=== PATIENT | female | born 1960 | race Caucasian/White ===

== ENCOUNTER 2017-04-15 19:48 | Inpatient (IN) | payer MEDICAID ==
[~2017-04-15] VITALS: Ht 152.4 cm; Wt 53.7 kg
[2017-04-16] MEDS ORDERED: SODIUM CHLORIDE 0.9% 1,000 ML IV ONE (00:14)
[2017-04-16] MEDS ORDERED: ONDANSETRON HCL 4MG/2ML VIAL IV STA (00:14)
[2017-04-16] MEDS ORDERED: MORPHINE SULFATE 4 MG/ML CPJ (NOT FOR IM USE) IV STA (00:14)
[2017-04-16 00:42] LABS: BASOPHILS % 0.3 % (0.0-2.0); EOSINOPHILS % 1.3 % (0.0-5.0); HEMATOCRIT. 34.9 % (36.0-48.0); HEMOGLOBIN. 11.5 g/dL (12.0-16.0); LYMPHOCYTES % 40.4 % (20.0-50.0); MEAN CORPUSCULAR HEMOGLOBIN 27.2 pg (28.0-32.0); MEAN CORPUSCULAR VOLUME 82.5 fL (81.0-99.0); MEAN PLATELET VOLUME 6.8 fl (7.4-10.4); PLATELET 385 x1000/uL (130-400); RED BLOOD CELL COUNT 4.23 mill/uL (4.2-5.4)
[2017-04-16 00:44] LABS: CHLORIDE 108 mEq/L (98-107)
[2017-04-16 00:46] LABS: PROTHROMBIN TIME 10.8 sec (9.4-11.6)
[2017-04-16 00:52] LABS: CARBON DIOXIDE 24 mEq/L (21-32)
[2017-04-16 08:56] VITALS: BP 124/50
[2017-04-16] MEDS ORDERED: ACETAMINOPHEN 325MG TABLET PO PRN (09:15)
[2017-04-16] MEDS ORDERED: MORPHINE SULFATE 4 MG/ML CPJ (NOT FOR IM USE) IV PRN (09:15)
[2017-04-16] MEDS ORDERED: DEXTROSE 50% WATER 50ML SYRINGE IV PRN (09:15)
[2017-04-16] MEDS ORDERED: CLONIDINE 0.1MG TABLET PO PRN (09:15)
[2017-04-16] MEDS ORDERED: ONDANSETRON HCL 4MG/2ML VIAL IV PRN (09:15)
[2017-04-16 09:20] VITALS: BP 124/50
[2017-04-16] MEDS ORDERED: LORAZEPAM 1MG TABLET PO PRN (10:00)
[2017-04-16] MEDS ORDERED: IPRATROPIUM/ALBUTEROL 0.5-3(2.5)MG/3ML NEB INH PRN (10:00)
[2017-04-16] MEDS: PIPERACILLIN/TAZ 3.375G PREMIX 50 ML IV SCH ×2 (11:47→19:44)
[2017-04-16] MEDS: BLOOD SUGAR DIAGNOSTIC STRIP TEST SCH ×3 (11:58→21:00)
[2017-04-16] MEDS: INSULIN LISPRO 100 UNITS/ML SUBCUT SCH ×3 (11:59→23:17)
[2017-04-16 12:00] VITALS: BP 120/42
[2017-04-16] MEDS ORDERED: VANCOMYCIN 1 G PREMIX 200 ML IV SCH (12:00)
[2017-04-16] MEDS ORDERED: VITA1CAP PO (13:40)
[2017-04-16] MEDS ORDERED: IRON PO (13:42)
[2017-04-16] MEDS ORDERED: INSU100I28 SQ (14:00)
[2017-04-16] MEDS ORDERED: BO1 TP (14:00)
[2017-04-16] MEDS ORDERED: ACET-2178 PO (14:00)
[2017-04-16] MEDS ORDERED: RIVA20TA PO (14:00)
[2017-04-16] MEDS ORDERED: BUSP30TA2 PO (14:00)
[2017-04-16] MEDS ORDERED: LEVO500T2 PO (14:00)
[2017-04-16] MEDS ORDERED: MEGE40TA27 PO (14:00)
[2017-04-16] MEDS ORDERED: SIMV20TA2 PO (14:00)
[2017-04-16] MEDS: LACTATED RINGERS 1,000 ML IV SCH (14:19)
[2017-04-16 16:00] VITALS: BP 129/78
[2017-04-16] MEDS: HYDROCODONE/APAP 7.5/325MG 1 TAB TABLET PO PRN ×2 (17:24→23:12)
[2017-04-16 18:35] LABS: CREATINE KINASE 54 IU/L (26-192); TROPONIN I < 0.02 ng/mL (0.00-0.04)
[2017-04-16 20:00] VITALS: BP 136/66
[2017-04-17] VITALS: BP 148/70
[2017-04-17] MEDS ORDERED: VANCOMYCIN 500 MG PREMIX 100 ML IV SCH
[2017-04-17] MEDS: LACTATED RINGERS 1,000 ML IV SCH ×3 (00:31→20:15)
[2017-04-17 01:51] LABS: CREATINE KINASE 54 IU/L (26-192); TROPONIN I < 0.02 ng/mL (0.00-0.04)
[2017-04-17] MEDS: PIPERACILLIN/TAZ 3.375G PREMIX 50 ML IV SCH ×3 (03:06→23:23)
[2017-04-17] MEDS: HYDROCODONE/APAP 7.5/325MG 1 TAB TABLET PO PRN ×3 (03:06→13:56)
[2017-04-17 04:00] VITALS: BP 116/67
[2017-04-17] MEDS: BLOOD SUGAR DIAGNOSTIC STRIP TEST SCH ×4 (07:02→21:00)
[2017-04-17 07:27] LABS: BASOPHILS % 0.3 % (0.0-2.0); EOSINOPHILS % 2.2 % (0.0-5.0); HEMATOCRIT. 31.6 % (36.0-48.0); HEMOGLOBIN. 10.4 g/dL (12.0-16.0); LYMPHOCYTES % 48.5 % (20.0-50.0); MONOCYTES % 6.9 % (2.0-8.0); NEUTROPHILS % 42.1 % (40.0-76.0); PLATELET 371 x1000/uL (130-400); RED BLOOD CELL COUNT 3.86 mill/uL (4.2-5.4); RED CELL DISTRIBUTION WIDTH 13.7 % (11.6-14.6)
[2017-04-17] MEDS: INSULIN LISPRO 100 UNITS/ML SUBCUT SCH ×4 (07:43→21:00)
[2017-04-17 08:00] VITALS: BP 144/73
[2017-04-17 08:05] LABS: CARBON DIOXIDE 27 mEq/L (21-32); CHLORIDE 106 mEq/L (98-107); HDL CHOLESTEROL 56 mg/dL (40-59); LDL CHOLESTEROL 72 mg/dL (5-100)
[2017-04-17] MEDS ORDERED: IOHEXOL-350 100 ML BOTTLE ONE (12:31)
[2017-04-17 13:40] VITALS: BP 136/65
[2017-04-17 16:00] VITALS: BP 123/68
[2017-04-17 20:00] VITALS: BP 145/75
[2017-04-17] MEDS: MORPHINE SULFATE 2 MG/ML CPJ (NOT FOR IM USE) IV PRN (22:53)
[2017-04-18] VITALS: BP 125/77
[2017-04-18] MEDS: MORPHINE SULFATE 2 MG/ML CPJ (NOT FOR IM USE) IV PRN ×4 (03:21→22:26)
[2017-04-18 04:00] VITALS: BP 110/55
[2017-04-18] MEDS: PIPERACILLIN/TAZ 3.375G PREMIX 50 ML IV SCH ×3 (05:09→20:09)
[2017-04-18] MEDS: LACTATED RINGERS 1,000 ML IV SCH ×2 (05:57→17:36)
[2017-04-18] MEDS: BLOOD SUGAR DIAGNOSTIC STRIP TEST SCH ×4 (07:25→20:15)
[2017-04-18] MEDS: INSULIN LISPRO 100 UNITS/ML SUBCUT SCH ×4 (07:37→20:16)
[2017-04-18 08:00] VITALS: BP 142/72
[2017-04-18 12:00] VITALS: BP 118/79
[2017-04-18 16:00] VITALS: BP 130/60
[2017-04-18] MEDS: HYDROCODONE/APAP 7.5/325MG 1 TAB TABLET PO PRN (17:35)
[2017-04-18 20:00] VITALS: BP 126/73
[2017-04-19] VITALS: BP 122/73
[2017-04-19] MEDS: LACTATED RINGERS 1,000 ML IV SCH ×2 (02:22→12:58)
[2017-04-19] MEDS: MORPHINE SULFATE 2 MG/ML CPJ (NOT FOR IM USE) IV PRN ×3 (02:23→17:02)
[2017-04-19 04:00] VITALS: BP 133/72
[2017-04-19] MEDS: PIPERACILLIN/TAZ 3.375G PREMIX 50 ML IV SCH ×3 (05:36→21:41)
[2017-04-19] MEDS: HYDROCODONE/APAP 7.5/325MG 1 TAB TABLET PO PRN ×2 (05:37→21:41)
[2017-04-19] MEDS: BLOOD SUGAR DIAGNOSTIC STRIP TEST SCH ×4 (06:08→21:45)
[2017-04-19] MEDS: INSULIN LISPRO 100 UNITS/ML SUBCUT SCH ×4 (07:34→22:21)
[2017-04-19 08:00] VITALS: BP 122/71
[2017-04-19 12:00] VITALS: BP 120/66
[2017-04-19 15:48] VITALS: BP 139/66
[2017-04-19 20:00] VITALS: BP 144/71
[2017-04-20] VITALS (7 sets, daily range): BP systolic 114–130; BP diastolic 60–73
[2017-04-20] MEDS: MORPHINE SULFATE 2 MG/ML CPJ (NOT FOR IM USE) IV PRN ×5 (01:15→23:28)
[2017-04-20] MEDS: LACTATED RINGERS 1,000 ML IV SCH ×2 (01:18→12:44)
[2017-04-20] MEDS: PIPERACILLIN/TAZ 3.375G PREMIX 50 ML IV SCH ×3 (04:29→19:54)
[2017-04-20] MEDS: BLOOD SUGAR DIAGNOSTIC STRIP TEST SCH ×4 (06:14→21:37)
[2017-04-20 07:09] LABS: BASOPHILS % 0.4 % (0.0-2.0); EOSINOPHILS % 1.6 % (0.0-5.0); HEMATOCRIT. 32.2 % (36.0-48.0); HEMOGLOBIN. 10.7 g/dL (12.0-16.0); LYMPHOCYTES % 45.7 % (20.0-50.0); MEAN CORPUSCULAR HEMOGLOBIN 27.1 pg (28.0-32.0); MEAN PLATELET VOLUME 6.7 fl (7.4-10.4); MONOCYTES % 7.3 % (2.0-8.0); PLATELET 415 x1000/uL (130-400); RED BLOOD CELL COUNT 3.93 mill/uL (4.2-5.4); RED CELL DISTRIBUTION WIDTH 13.7 % (11.6-14.6)
[2017-04-20 07:28] LABS: CARBON DIOXIDE 31 mEq/L (21-32); CHLORIDE 104 mEq/L (98-107)
[2017-04-20] MEDS: INSULIN LISPRO 100 UNITS/ML SUBCUT SCH ×4 (07:42→21:37)
[2017-04-20] MEDS: HYDROCODONE/APAP 7.5/325MG 1 TAB TABLET PO PRN (21:00)
[2017-04-21 04:00] VITALS: BP 138/75
[2017-04-21] MEDS: PIPERACILLIN/TAZ 3.375G PREMIX 50 ML IV SCH ×2 (04:04→12:28)
[2017-04-21] MEDS: LACTATED RINGERS 1,000 ML IV SCH (04:05)
[2017-04-21] MEDS: BLOOD SUGAR DIAGNOSTIC STRIP TEST SCH ×2 (06:23→13:13)
[2017-04-21] MEDS: MORPHINE SULFATE 2 MG/ML CPJ (NOT FOR IM USE) IV PRN (06:23)
[2017-04-21] MEDS: INSULIN LISPRO 100 UNITS/ML SUBCUT SCH ×2 (06:40→13:38)
[2017-04-21 08:00] VITALS: BP 131/62
[2017-04-21] MEDS ORDERED: MORPHINE SULFATE 2 MG/ML CPJ (NOT FOR IM USE) IV PRN (09:30)
[2017-04-21] MEDS: HYDROCODONE/APAP 7.5/325MG 1 TAB TABLET PO PRN ×2 (09:45→18:06)
[2017-04-21 12:00] VITALS: BP 117/64
[2017-04-21 16:00] VITALS: BP 129/81
[2017-04-21 16:27] VITALS: BP 129/81
[2017-04-21 18:06] VITALS: BP 129/81
[2017-04-22] MEDS ORDERED: LEVOFLOXACIN 500MG TABLET PO SCH (11:00)
== END 2017-04-21 18:35 | disposition home or self-care (01) | DRG 349 ==
LOC: ER 22:31 → 6EST 04-16 05:51 → EDBEDREQ 04-16 05:53 → EDBEDREQTM 04-16 05:53 → ENRESERV 04-16 08:23
PROVIDERS: ADMIT Internal Medicine; ATTEND Internal Medicine
DX: T87.54 Necrosis of amputation stump, left lower extremity (principal); N17.9 Acute kidney failure, unspecified; E11.52 Type 2 diabetes mellitus with diabetic peripheral angiopathy with gangrene; T82.898A Other specified complication of vascular prosthetic devices, implants and grafts, initial encounter; E11.42 Type 2 diabetes mellitus with diabetic polyneuropathy; E11.621 Type 2 diabetes mellitus with foot ulcer; L97.529 Non-pressure chronic ulcer of other part of left foot with unspecified severity; I99.8 Other disorder of circulatory system; D64.9 Anemia, unspecified; Z89.411 Acquired absence of right great toe; Z89.429 Acquired absence of other toe(s), unspecified side; Z89.432 Acquired absence of left foot
CPT/HCPCS: 36415; 75635; 80048; 80053; 80061; 82550; 82962; 83605; 84443; 84484; 85025; 85610; 87040; 87070; 87077; 87186; 87205; 96361; 96374; 96375; 99285; J1815; J2270; J2405; J2543; J3370; J7030; J7050; J7120; Q9967

== ENCOUNTER → 2019-07-12 | Outpatient (CLI) | payer MEDICARE, MEDICAID ==
[~2019-07-12] MED LIST: BO1 TP; BUSP30TA2 PO; INSU100I28 SQ; IRON PO; LEVO500T2 PO; MEGE40TA27 PO; RIVA20TA PO; SIMV20TA2 PO; TOPUD PO; VITA1CAP PO
== END | disposition home or self-care (01) ==
LOC: US 10:14
PROVIDERS: ATTEND Specialist
DX: E04.2 Nontoxic multinodular goiter (principal)
CPT/HCPCS: 76536

== ENCOUNTER 2020-03-17 13:19 | Inpatient (IN) | payer MEDICARE, MEDICAID ==
[~2020-03-17] VITALS: Ht 152.4 cm; Wt 58.5 kg
[~2020-03-17 13:19] MED LIST changes: -MEGE40TA27 PO; +MEGE40TA5 PO
[2020-03-17] MEDS ORDERED: SODIUM CHLORIDE 0.9% 1,000 ML IV ONE (14:40)
[2020-03-17 15:34] LABS: CHLORIDE 107 mEq/L (98-107)
[2020-03-17 15:38] LABS: PROTHROMBIN TIME 10.6 sec (9.6-11.0)
[2020-03-17 15:47] LABS: BASOPHILS % 0.3 % (0.0-2.0); EOSINOPHILS % 0.4 % (0.0-5.0); HEMOGLOBIN. 9.4 g/dL (12.0-16.0); LYMPHOCYTES % 20.4 % (20.0-50.0); MEAN CORPUSCULAR HEMOGLOBIN 28.1 pg (28.0-32.0); MEAN CORPUSCULAR VOLUME 86.4 fL (81.0-99.0); NEUTROPHILS % 72.9 % (40.0-76.0); PLATELET 297 x1000/uL (130-400); RED BLOOD CELL COUNT 3.35 mill/uL (4.2-5.4); RED CELL DISTRIBUTION WIDTH 13.6 % (11.6-14.6)
[2020-03-17] MEDS ORDERED: CEFTRIAXONE 1 G PREMIX 50 ML IV ONE (16:30)
[2020-03-17] MEDS ORDERED: MORPHINE SULFATE 2 MG/ML CPJ (NOT FOR IM USE) IV ONE (17:15)
[2020-03-17 17:41] LABS: CLARITY URINE CLEAR (CLEAR); COLOR URINE YELLOW (YELLOW); KETONES URINE NEGATIVE (NEGATIVE); LEUKOCYTE ESTERASE URINE 2+ (NEGATIVE); NITRITE URINE NEGATIVE (NEGATIVE); OCCULT BLOOD URINE 1+ (NEGATIVE); PROTEIN URINE 2+ (NEGATIVE); SPECIFIC GRAVITY URINE 1.013 (1.005-1.030); UROBILINOGEN URINE 0.2 E.U./dL (0.2-1.0)
[2020-03-17] MEDS ORDERED: ONDANSETRON HCL 4MG/2ML INJ IV ONE (18:30)
[2020-03-17] MEDS ORDERED: ONDANSETRON HCL 4MG/2ML INJ ONE (18:31)
[2020-03-17 22:30] VITALS: BP 90/48
[2020-03-17] MEDS ORDERED: ASPI-1497 PO (22:41)
[2020-03-17] MEDS ORDERED: FERR325T23 PO (22:41)
[2020-03-17] MEDS ORDERED: HYDR12.54 PO (22:41)
[2020-03-17] MEDS ORDERED: METF-414 PO (22:41)
[2020-03-17] MEDS ORDERED: LISI-604 PO (22:41)
[2020-03-17] MEDS ORDERED: ATOR40TA70 PO (22:41)
[2020-03-17] MEDS ORDERED: CLOP75TA33 PO (22:41)
[2020-03-17] MEDS ORDERED: FURO40TA5 PO (22:41)
[2020-03-17] MEDS ORDERED: DEXTROSE 50% WATER 50ML SYRINGE IV PRN (23:00)
[2020-03-17] MEDS ORDERED: FAMOTIDINE 20MG TABLET PO SCH (23:15)
[2020-03-18] MEDS: SODIUM CHLORIDE 0.9% 1,000 ML IV SCH ×3 (00:05→22:12)
[2020-03-18] MEDS: ATORVASTATIN CALCIUM 40MG TABLET PO SCH ×2 (00:06→22:12)
[2020-03-18 00:46] VITALS: BP 95/48
[2020-03-18] MEDS ORDERED: SODIUM CHLORIDE 0.9% 1,000 ML IV SCH (01:00)
[2020-03-18 04:00] VITALS: BP_SYST 115; BP_SYST 97; BP_DIAS 43; BP_DIAS 61
[2020-03-18 06:06] LABS: BASOPHILS % 0.3 % (0.0-2.0); EOSINOPHILS % 0.3 % (0.0-5.0); HEMATOCRIT. 23.1 % (36.0-48.0); HEMOGLOBIN. 7.6 g/dL (12.0-16.0); LYMPHOCYTES % 22.7 % (20.0-50.0); MEAN CORPUSCULAR HEMOGLOBIN 28.2 pg (28.0-32.0); MEAN CORPUSCULAR VOLUME 86.1 fL (81.0-99.0); MONOCYTES % 7.4 % (2.0-8.0); NEUTROPHILS % 69.3 % (40.0-76.0); PLATELET 238 x1000/uL (130-400); RED BLOOD CELL COUNT 2.68 mill/uL (4.2-5.4); RED CELL DISTRIBUTION WIDTH 13.7 % (11.6-14.6)
[2020-03-18] MEDS: BLOOD SUGAR DIAGNOSTIC STRIP TEST SCH ×4 (07:20→21:56)
[2020-03-18] MEDS: INSULIN LISPRO 100 UNITS/ML SUBCUT SCH ×4 (07:50→22:13)
[2020-03-18 07:51] VITALS: BP 107/69
[2020-03-18] MEDS ORDERED: HEPARIN 5000 UNITS/ML VIAL SUBCUT SCH ×2 (09:00)
[2020-03-18] MEDS: FERROUS SULFATE 325MG TABLET PO SCH ×3 (09:42→17:46)
[2020-03-18] MEDS: FAMOTIDINE 20MG TABLET PO SCH (09:42)
[2020-03-18] MEDS: CLOPIDOGREL 75MG TABLET PO SCH (09:43)
[2020-03-18 12:00] VITALS: BP 125/42
[2020-03-18] MEDS ORDERED: SODIUM POLYSTYRENE SULFONATE 15 G/60 ML BOT PO NR (13:15)
[2020-03-18] MEDS ORDERED: BISACODYL 10MG SUPP PR PRN (14:00)
[2020-03-18] MEDS ORDERED: BISACODYL 10MG SUPP PR NR (14:00)
[2020-03-18] MEDS: PIPERACILLIN/TAZOBACTAM 2.25 G in DEXTROSE 5% WATER 50 ML IV SCH (17:57)
[2020-03-18] MEDS ORDERED: CEFTRIAXONE 1,000 MG in DEXTROSE 5% WATER 50 ML IV SCH (18:00)
[2020-03-18 20:00] VITALS: BP 140/53
[2020-03-18 20:10] LABS: HEMATOCRIT 28.3 % (36.0-48.0); HEMOGLOBIN 9.3 g/dL (12.0-16.0)
[2020-03-18 20:26] LABS: T4 FREE 1.16 ng/dL (0.76-1.46)
[2020-03-18] MEDS ORDERED: ACETAMINOPHEN 325MG TABLET PO PRN (23:45)
[2020-03-19] VITALS: BP 109/49
[2020-03-19] MEDS ORDERED: GENTAMICIN 80MG PREMIX 100 ML IV SCH (01:00)
[2020-03-19] MEDS: PIPERACILLIN/TAZOBACTAM 2.25 G in DEXTROSE 5% WATER 50 ML IV SCH ×2 (02:50→10:32)
[2020-03-19 04:00] VITALS: BP 109/40
[2020-03-19 07:14] LABS: BASOPHILS % 0.4 % (0.0-2.0); EOSINOPHILS % 1.3 % (0.0-5.0); HEMATOCRIT. 23.8 % (36.0-48.0); LYMPHOCYTES % 29.8 % (20.0-50.0); MEAN CORPUSCULAR HEMOGLOBIN 28.7 pg (28.0-32.0); MEAN CORPUSCULAR VOLUME 85.8 fL (81.0-99.0); MEAN PLATELET VOLUME 8.2 fl (7.4-10.4); MONOCYTES % 8.1 % (2.0-8.0); NEUTROPHILS % 60.4 % (40.0-76.0); PLATELET 217 x1000/uL (130-400); RED BLOOD CELL COUNT 2.77 mill/uL (4.2-5.4); RED CELL DISTRIBUTION WIDTH 13.6 % (11.6-14.6)
[2020-03-19] MEDS: BLOOD SUGAR DIAGNOSTIC STRIP TEST SCH ×4 (07:37→21:21)
[2020-03-19] MEDS: INSULIN LISPRO 100 UNITS/ML SUBCUT SCH ×4 (07:38→21:00)
[2020-03-19 07:49] LABS: PHOSPHORUS 4.4 mg/dL (2.5-4.9)
[2020-03-19 08:30] VITALS: BP 111/55
[2020-03-19] MEDS: SODIUM CHLORIDE 0.9% 1,000 ML IV SCH ×3 (08:35→23:58)
[2020-03-19] MEDS: FERROUS SULFATE 325MG TABLET PO SCH ×3 (08:35→17:17)
[2020-03-19] MEDS: CLOPIDOGREL 75MG TABLET PO SCH (08:35)
[2020-03-19] MEDS: FAMOTIDINE 20MG TABLET PO SCH (08:35)
[2020-03-19 12:00] VITALS: BP 130/60
[2020-03-19] MEDS: MEROPENEM 500 MG in SODIUM CHLORIDE 0.9% 50 ML IV SCH (15:26)
[2020-03-19 16:00] VITALS: BP 140/70
[2020-03-19 20:00] VITALS: BP 148/54
[2020-03-19] MEDS: ATORVASTATIN CALCIUM 40MG TABLET PO SCH (21:21)
[2020-03-20] VITALS: BP 138/56
[2020-03-20 04:00] VITALS: BP 136/49
[2020-03-20] MEDS: BLOOD SUGAR DIAGNOSTIC STRIP TEST SCH ×4 (06:23→21:02)
[2020-03-20] MEDS: INSULIN LISPRO 100 UNITS/ML SUBCUT SCH ×4 (07:19→21:00)
[2020-03-20 07:31] LABS: BASOPHILS % 0.3 % (0.0-2.0); HEMATOCRIT. 24.2 % (36.0-48.0); HEMOGLOBIN. 8.1 g/dL (12.0-16.0); LYMPHOCYTES % 27.8 % (20.0-50.0); MEAN CORPUSCULAR HEMOGLOBIN 28.6 pg (28.0-32.0); MEAN CORPUSCULAR VOLUME 85.4 fL (81.0-99.0); MEAN PLATELET VOLUME 8.2 fl (7.4-10.4); MONOCYTES % 10.4 % (2.0-8.0); NEUTROPHILS % 59.5 % (40.0-76.0); PLATELET 230 x1000/uL (130-400); RED BLOOD CELL COUNT 2.84 mill/uL (4.2-5.4); RED CELL DISTRIBUTION WIDTH 13.3 % (11.6-14.6)
[2020-03-20 08:00] VITALS: BP 140/60
[2020-03-20] MEDS: CLOPIDOGREL 75MG TABLET PO SCH (08:25)
[2020-03-20] MEDS: FERROUS SULFATE 325MG TABLET PO SCH ×3 (08:25→17:42)
[2020-03-20] MEDS: FAMOTIDINE 20MG TABLET PO SCH (08:25)
[2020-03-20 08:43] LABS: CHLORIDE 112 mEq/L (98-107)
[2020-03-20 08:58] LABS: PHOSPHORUS 3.3 mg/dL (2.5-4.9)
[2020-03-20] MEDS: SODIUM CHLORIDE 0.9% 1,000 ML IV SCH ×2 (10:57→21:04)
[2020-03-20 12:00] VITALS: BP 135/77
[2020-03-20] MEDS: MEROPENEM 500 MG in SODIUM CHLORIDE 0.9% 50 ML IV SCH (15:23)
[2020-03-20] MEDS ORDERED: HYDROCODONE/ACETAMINOPHEN 5/325MG TABLET PO PRN (15:45)
[2020-03-20] MEDS ORDERED: LORAZEPAM 2MG/ML CPJ IV PRN (15:45)
[2020-03-20] MEDS ORDERED: LACTULOSE 20G/30ML UDC PO PRN (15:45)
[2020-03-20] MEDS ORDERED: MORPHINE SULFATE 2 MG/ML CPJ (NOT FOR IM USE) IV PRN (15:45)
[2020-03-20 16:00] VITALS: BP 118/45
[2020-03-20] MEDS ORDERED: LEVOFLOXACIN 500MG PREMIX 100 ML IV SCH (17:00)
[2020-03-20 20:00] VITALS: BP 129/60
[2020-03-20] MEDS: ATORVASTATIN CALCIUM 40MG TABLET PO SCH (21:01)
[2020-03-21 00:20] VITALS: BP 147/63
[2020-03-21 04:00] VITALS: BP 138/56
[2020-03-21] MEDS: BLOOD SUGAR DIAGNOSTIC STRIP TEST SCH ×2 (06:21→12:16)
[2020-03-21] MEDS: SODIUM CHLORIDE 0.9% 1,000 ML IV SCH (06:21)
[2020-03-21 07:01] LABS: BASOPHILS % 0.3 % (0.0-2.0); EOSINOPHILS % 2.6 % (0.0-5.0); HEMATOCRIT. 23.2 % (36.0-48.0); HEMOGLOBIN. 7.8 g/dL (12.0-16.0); LYMPHOCYTES % 34.4 % (20.0-50.0); MEAN CORPUSCULAR HEMOGLOBIN 28.6 pg (28.0-32.0); MEAN CORPUSCULAR VOLUME 85.2 fL (81.0-99.0); MEAN PLATELET VOLUME 7.9 fl (7.4-10.4); MONOCYTES % 10.4 % (2.0-8.0); NEUTROPHILS % 52.3 % (40.0-76.0); PLATELET 230 x1000/uL (130-400); RED BLOOD CELL COUNT 2.72 mill/uL (4.2-5.4); RED CELL DISTRIBUTION WIDTH 13.2 % (11.6-14.6)
[2020-03-21] MEDS: INSULIN LISPRO 100 UNITS/ML SUBCUT SCH ×2 (07:50→12:16)
[2020-03-21 08:02] VITALS: BP 139/56
[2020-03-21] MEDS: FAMOTIDINE 20MG TABLET PO SCH (08:04)
[2020-03-21] MEDS: CLOPIDOGREL 75MG TABLET PO SCH (08:04)
[2020-03-21] MEDS: FERROUS SULFATE 325MG TABLET PO SCH ×2 (08:07→12:15)
[2020-03-21 12:00] VITALS: BP 152/47
[2020-03-21] MEDS ORDERED: LEVO500T2 PO (14:18)
[2020-03-21 14:46] VITALS: BP 18/158
[2020-03-21 16:00] VITALS: BP 158/65
[2020-03-21 16:14] LABS: HEMATOCRIT 22.6 % (36.0-48.0); HEMOGLOBIN 7.5 g/dL (12.0-16.0)
[2020-03-22] MEDS ORDERED: LEVOFLOXACIN 250MG PREMIX 50 ML IV SCH (18:00)
== END 2020-03-21 17:15 | disposition home or self-care (01) | DRG 871 ==
LOC: ER 13:56 → EDBEDREQ 15:01 → 6WST 18:16 → EDBEDREQ 18:22 → ENRESERV 19:19
PROVIDERS: ADMIT Internal Medicine; ATTEND Internal Medicine
PROC: 5A1D70Z Performance of Urinary Filtration, Intermittent, Less than 6 Hours Per Day (ICD-10-PCS; principal; 2020-03-18)
PROC: 02H633Z Insertion of Infusion Device into Right Atrium, Percutaneous Approach (ICD-10-PCS; 2020-03-18)
PROC: B54MZZA Ultrasonography of Right Upper Extremity Veins, Guidance (ICD-10-PCS; 2020-03-18)
DX: A41.51 Sepsis due to Escherichia coli [E. coli] (principal); I50.43 Acute on chronic combined systolic (congestive) and diastolic (congestive) heart failure; N17.9 Acute kidney failure, unspecified; N12 Tubulo-interstitial nephritis, not specified as acute or chronic; N18.5 Chronic kidney disease, stage 5; I13.2 Hypertensive heart and chronic kidney disease with heart failure and with stage 5 chronic kidney disease, or end stage renal disease; E11.22 Type 2 diabetes mellitus with diabetic chronic kidney disease; E78.5 Hyperlipidemia, unspecified; E87.5 Hyperkalemia; K56.41 Fecal impaction; K76.0 Fatty (change of) liver, not elsewhere classified; D63.8 Anemia in other chronic diseases classified elsewhere; B96.20 Unspecified Escherichia coli [E. coli] as the cause of diseases classified elsewhere; E78.00 Pure hypercholesterolemia, unspecified; R65.20 Severe sepsis without septic shock; I25.2 Old myocardial infarction; Z79.01 Long term (current) use of anticoagulants; Z79.4 Long term (current) use of insulin; Z79.899 Other long term (current) drug therapy; Z79.82 Long term (current) use of aspirin; Z79.84 Long term (current) use of oral hypoglycemic drugs
CPT/HCPCS: 36415; 71045; 74176; 76770; 77001; 80048; 80053; 80061; 80170; 81003; 82270; 82728; 82962; 83036; 83540; 83550; 83605; 83735; 84100; 84439; 84443; 84484; 85014; 85018; 85025; 86850; 86900; 87077; 87186; 93005; 93306; 93970; 99291; C1752; J0696; J1580; J1815; J1956; J2185; J2270; J2405; J2543; J7030; J7060

== ENCOUNTER → 2020-04-26 | Outpatient (CLI) | payer MEDICARE, MEDICAID ==
[~2020-04-26] MED LIST changes: +ASPI-1497 PO; +ATOR40TA70 PO; +CLOP75TA33 PO; +FERR325T23 PO; +METF-414 PO; -RIVA20TA PO
== END | disposition home or self-care (01) ==
LOC: RAD 12:36
PROVIDERS: ATTEND Internal Medicine Nephrology
DX: J84.10 Pulmonary fibrosis, unspecified (principal); I10 Essential (primary) hypertension
CPT/HCPCS: 71045

== ENCOUNTER 2020-06-04 01:57 | Inpatient (IN) | payer MEDICARE, MEDICAID ==
[~2020-06-04] VITALS: Ht 157.5 cm; Wt 59.0 kg
[~2020-06-04 01:57] MED LIST changes: -CLOP75TA33 PO; -IRON PO; -LEVO500T2 PO; -METF-414 PO
[2020-06-04] MEDS ORDERED: MORPHINE SULFATE 4 MG/ML CPJ (NOT FOR IM USE) IV ONE (02:45)
[2020-06-04 02:56] LABS: HEMATOCRIT. 30.1 % (36.0-48.0); HEMOGLOBIN. 9.6 g/dL (12.0-16.0); LYMPHOCYTES % 26.1 % (20.0-50.0); MEAN CORPUSCULAR HEMOGLOBIN 27.9 pg (28.0-32.0); MEAN CORPUSCULAR VOLUME 87.2 fL (81.0-99.0); MEAN PLATELET VOLUME 7.5 fl (7.4-10.4); MONOCYTES % 5.8 % (2.0-8.0); NEUTROPHILS % 65.1 % (40.0-76.0); PLATELET 283 x1000/uL (130-400); RED BLOOD CELL COUNT 3.45 mill/uL (4.2-5.4); RED CELL DISTRIBUTION WIDTH 13.8 % (11.6-14.6)
[2020-06-04] MEDS ORDERED: METOPROLOL TARTRATE 5MG/5ML VIAL IV ONE (03:00)
[2020-06-04] MEDS ORDERED: HEPARIN 25,000 UNITS PREMIX 250 ML IV ONE (03:00)
[2020-06-04 03:08] LABS: PARTIAL THROMBOPLASTIN TIME 25.6 sec (23.4-31.0); PROTHROMBIN TIME 10.8 sec (9.6-11.0)
[2020-06-04 03:25] LABS: CHLORIDE 104 mEq/L (98-107)
[2020-06-04] MEDS ORDERED: HEPARIN 25,000 UNITS PREMIX 250 ML IV SCH (03:30)
[2020-06-04] MEDS ORDERED: HEPARIN BOLUS PRN aPTT 30-44 IV ×2 (03:30→03:36)
[2020-06-04] MEDS ORDERED: HEPARIN BOLUS PRN aPTT <30 IV ×2 (03:30→03:36)
[2020-06-04] MEDS: FERROUS SULFATE 325MG TABLET PO SCH (09:00)
[2020-06-04 16:01] VITALS: BP 131/60
[2020-06-04 16:15] VITALS: BP 131/60
[2020-06-04] MEDS ORDERED: ALBUMIN HUMAN 25GM/100ML (25%) IV NR (16:30)
[2020-06-04] MEDS ORDERED: ENOXAPARIN 30MG/0.3ML SYR SUBCUT NR (18:00)
[2020-06-04] MEDS ORDERED: CLONIDINE 0.1MG TABLET PO PRN (18:45)
[2020-06-04] MEDS ORDERED: DIPHENHYDRAMINE 50MG/ML VIAL IV PRN (18:45)
[2020-06-04] MEDS ORDERED: ZOLPIDEM TARTRATE 5MG TABLET PO PRN (18:45)
[2020-06-04] MEDS ORDERED: ACETAMINOPHEN 325MG TABLET PO PRN ×2 (18:45)
[2020-06-04] MEDS ORDERED: MAGNESIUM/ALUMINUM HYDROXIDE/SIMETHICONE 30ML UDC PO PRN (18:45)
[2020-06-04] MEDS ORDERED: MAGNESIUM HYDROXIDE 400MG/5ML 30ML UDC PO PRN (18:45)
[2020-06-04] MEDS ORDERED: DEXTROSE 50% WATER 50ML SYRINGE IV PRN (18:45)
[2020-06-04] MEDS ORDERED: GUAIFENESIN 200MG/10ML SUGAR FREE UDC PO PRN (18:45)
[2020-06-04] MEDS ORDERED: ONDANSETRON HCL 4MG/2ML INJ IV PRN (18:45)
[2020-06-04 20:00] VITALS: BP 137/65
[2020-06-04] MEDS: INSULIN LISPRO 100 UNITS/ML SUBCUT SCH (20:46)
[2020-06-04] MEDS: BLOOD SUGAR DIAGNOSTIC STRIP TEST SCH (20:46)
[2020-06-04] MEDS: ATORVASTATIN CALCIUM 40MG TABLET PO SCH (20:52)
[2020-06-04] MEDS ORDERED: EPOETIN ALFA-EPBX 10,000 UNIT/ML VIAL SUBCUT SCH (21:00)
[2020-06-04] MEDS: SODIUM CHLORIDE 0.9% INJ 3ML FLUSH IVF SCH (21:00)
[2020-06-05] VITALS (31 sets, daily range): BP systolic 99–144; BP diastolic 45–101
[2020-06-05] MEDS: SODIUM CHLORIDE 0.9% INJ 3ML FLUSH IVF SCH ×3 (05:50→21:42)
[2020-06-05 06:50] LABS: BASOPHILS % 0.4 % (0.0-2.0); EOSINOPHILS % 2.2 % (0.0-5.0); HEMATOCRIT. 25.7 % (36.0-48.0); HEMOGLOBIN. 8.5 g/dL (12.0-16.0); LYMPHOCYTES % 47.1 % (20.0-50.0); MEAN CORPUSCULAR HEMOGLOBIN 28.3 pg (28.0-32.0); MEAN CORPUSCULAR VOLUME 85.6 fL (81.0-99.0); MEAN PLATELET VOLUME 7.4 fl (7.4-10.4); MONOCYTES % 7.5 % (2.0-8.0); NEUTROPHILS % 42.8 % (40.0-76.0); PLATELET 259 x1000/uL (130-400)
[2020-06-05 07:09] LABS: PHOSPHORUS 3.9 mg/dL (2.5-4.9)
[2020-06-05] MEDS: OMEPRAZOLE 20MG CAPSULE EXTENDED RELEASE PO SCH (07:20)
[2020-06-05] MEDS: INSULIN LISPRO 100 UNITS/ML SUBCUT SCH ×4 (07:50→21:21)
[2020-06-05] MEDS: BLOOD SUGAR DIAGNOSTIC STRIP TEST SCH ×4 (07:55→21:00)
[2020-06-05] MEDS ORDERED: FUROSEMIDE 100MG/10ML VIAL IVP NR (08:15)
[2020-06-05] MEDS ORDERED: NITROGLYCERIN 50MCG/ML 10ML VIAL (CATH LAB) IV ONE (09:00)
[2020-06-05] MEDS ORDERED: NICARDIPINE 100MCG/ML 10ML VIAL (CATH LAB) IV ONE (09:00)
[2020-06-05] MEDS: FERROUS SULFATE 325MG TABLET PO SCH (09:00)
[2020-06-05] MEDS ORDERED: HEPARIN SODIUM 1,000 UNIT/1ML VIAL IV ONE (09:00)
[2020-06-05] MEDS ORDERED: LIDOCAINE HCL 1% 20ML VIAL (Pyxis) INJ ONE (09:27)
[2020-06-05] MEDS ORDERED: IODIXANOL 320MG/ML 100 ML BOTTLE IV ONE (09:28)
[2020-06-05] MEDS ORDERED: FENTANYL CITRATE/PF 50MCG/ML 2ML VIAL ONE (09:51)
[2020-06-05] MEDS ORDERED: MIDAZOLAM HCL 2 MG/2 ML VIAL ONE (09:51)
[2020-06-05] MEDS ORDERED: ASPIRIN/SOD BICARB/CITRIC ACID 324MG TAB EFF ONE (09:53)
[2020-06-05] MEDS ORDERED: ACETAMINOPHEN 325MG TABLET PO PRN ×2 (10:45→11:15)
[2020-06-05] MEDS ORDERED: ATROPINE SULFATE 1MG/10ML SYR IV PRN (10:45)
[2020-06-05] MEDS ORDERED: ONDANSETRON HCL 4MG/2ML INJ IV PRN (10:45)
[2020-06-05] MEDS ORDERED: CHLORHEXIDINE GLUCONATE 4% EXTERNAL USE TOP SCH ×2 (11:15→21:00)
[2020-06-05] MEDS ORDERED: NITROGLYCERIN 0.4MG TABLET SL SL PRN (11:15)
[2020-06-05] MEDS ORDERED: EPOETIN ALFA-EPBX 10,000 UNIT/ML VIAL SUBCUT NR (12:00)
[2020-06-05] MEDS ORDERED: MAGNESIUM 2 G PREMIX 50 ML IV NR (12:00)
[2020-06-05] MEDS ORDERED: ASCORBIC ACID 500 MG TABLET PO SCH (21:00)
[2020-06-05] MEDS ORDERED: BISACODYL 10MG SUPP PR PRN (21:00)
[2020-06-05] MEDS ORDERED: DIPHENHYDRAMINE 25MG CAPSULE PO PRN (21:00)
[2020-06-05] MEDS ORDERED: DOCUSATE SODIUM 100MG CAPSULE PO SCH (21:00)
[2020-06-05] MEDS: ALLOPURINOL 300 MG TABLET PO SCH (21:26)
[2020-06-05] MEDS: ATORVASTATIN CALCIUM 40MG TABLET PO SCH (21:26)
[2020-06-06] VITALS (30 sets, daily range): BP systolic 112–158; BP diastolic 25–84
[2020-06-06] MEDS ORDERED: BLOOD SUGAR DIAGNOSTIC STRIP TEST NR (05:00)
[2020-06-06] MEDS ORDERED: CEFAZOLIN 2,000 MG in DEXT 5% WATER 100 ML IV NR (05:00)
[2020-06-06] MEDS: ALLOPURINOL 300 MG TABLET PO SCH (05:16)
[2020-06-06] MEDS: OMEPRAZOLE 20MG CAPSULE EXTENDED RELEASE PO SCH (05:53)
[2020-06-06] MEDS: BLOOD SUGAR DIAGNOSTIC STRIP TEST SCH ×6 (05:53→23:01)
[2020-06-06] MEDS: INSULIN LISPRO 100 UNITS/ML SUBCUT SCH ×2 (05:53→11:18)
[2020-06-06] MEDS ORDERED: VANCOMYCIN 1 G PREMIX 200 ML IV NR (06:00)
[2020-06-06] MEDS: SODIUM CHLORIDE 0.9% INJ 3ML FLUSH IVF SCH ×3 (06:20→22:09)
[2020-06-06 07:41] LABS: BASOPHILS % 0.9 % (0.0-2.0); EOSINOPHILS % 3.7 % (0.0-5.0); HEMATOCRIT. 36.7 % (36.0-48.0); LYMPHOCYTES % 36.2 % (20.0-50.0); MEAN CORPUSCULAR HEMOGLOBIN 28.3 pg (28.0-32.0); MEAN CORPUSCULAR VOLUME 86.2 fL (81.0-99.0); MEAN PLATELET VOLUME 7.8 fl (7.4-10.4); MONOCYTES % 9.1 % (2.0-8.0); NEUTROPHILS % 50.1 % (40.0-76.0); PLATELET 263 x1000/uL (130-400); RED BLOOD CELL COUNT 4.26 mill/uL (4.2-5.4); RED CELL DISTRIBUTION WIDTH 14.2 % (11.6-14.6)
[2020-06-06] MEDS: FERROUS SULFATE 325MG TABLET PO SCH (08:04)
[2020-06-06 08:14] LABS: PHOSPHORUS 3.8 mg/dL (2.5-4.9)
[2020-06-06] MEDS ORDERED: CHLORHEXIDINE GLUCONATE 4% EXTERNAL USE TOP SCH (09:00)
[2020-06-06] MEDS ORDERED: DOPAMINE 400MG/250ML PREMIX 250 ML IV ONE (10:28)
[2020-06-06] MEDS ORDERED: HEPARIN 1000 UNITS/ML 10ML ONE ×2 (10:28→14:47)
[2020-06-06] MEDS ORDERED: ACETAMINOPHEN 500MG TABLET ONE (10:28)
[2020-06-06] MEDS ORDERED: SEVOFLURANE 250 ML LIQUID INH ONE (10:28)
[2020-06-06] MEDS ORDERED: BACITRACIN 15GM TUBE TOP ONE (10:33)
[2020-06-06] MEDS ORDERED: SKIN ADHESIVE 0.7 GM EA TOP ONE (10:33)
[2020-06-06] MEDS ORDERED: THROMBIN (BOVINE) 5000 UNITS/VIAL TOP ONE ×2 (10:34→10:35)
[2020-06-06] MEDS ORDERED: LACTATED RINGERS 2,000 ML IV ONE (10:34)
[2020-06-06] MEDS ORDERED: BACITRACIN 50,000 UNITS/VIAL ONE (10:34)
[2020-06-06] MEDS ORDERED: SODIUM CHLORIDE 0.9% 4,000 ML ONE (10:34)
[2020-06-06] MEDS ORDERED: SODIUM CHLORIDE 0.9% INJ 10ML FLUSH IVF ONE (10:34)
[2020-06-06] MEDS ORDERED: PROPOFOL 10MG/ML 100ML 100 ML IV ONE (10:59)
[2020-06-06] MEDS ORDERED: PHENYLEPHRINE HCL 10 MG/ML 1ML (IV VIAL) IV ONE (10:59)
[2020-06-06] MEDS ORDERED: ROCURONIUM BROMIDE 10MG/ML VIAL 5ML IV ONE (10:59)
[2020-06-06] MEDS ORDERED: LIDOCAINE HCL 2% 5ML SYRINGE IV ONE (11:02)
[2020-06-06] MEDS ORDERED: ONDANSETRON HCL 4MG/2ML INJ ONE ×2 (11:03→18:25)
[2020-06-06] MEDS ORDERED: METOCLOPRAMIDE HCL 10MG/2ML VIAL ONE (11:03)
[2020-06-06] MEDS ORDERED: SODIUM CHLORIDE 0.9% 10ML VIAL ONE (11:03)
[2020-06-06] MEDS ORDERED: CALCIUM CHLORIDE 1GM/10ML SYR IV ONE (11:20)
[2020-06-06] MEDS ORDERED: MAGNESIUM SULFATE 5GM/10ML VIAL IV ONE (11:45)
[2020-06-06] MEDS ORDERED: HEPARIN 10,000 UNITS/ML VIAL ONE (12:00)
[2020-06-06 13:42] LABS: CLARITY URINE CLEAR (CLEAR); COLOR URINE YELLOW (YELLOW); KETONES URINE NEGATIVE (NEGATIVE); LEUKOCYTE ESTERASE URINE 1+ (NEGATIVE); NITRITE URINE NEGATIVE (NEGATIVE); OCCULT BLOOD URINE TRACE (NEGATIVE); PROTEIN URINE 4+ (NEGATIVE); SPECIFIC GRAVITY URINE 1.021 (1.005-1.030); UROBILINOGEN URINE 0.2 E.U./dL (0.2-1.0)
[2020-06-06] MEDS ORDERED: MIDAZOLAM HCL 2 MG/2 ML VIAL ONE ×2 (13:48→14:43)
[2020-06-06] MEDS ORDERED: FENTANYL CITRATE/PF 50MCG/ML 5ML VIAL ONE (13:49)
[2020-06-06] MEDS ORDERED: AMINOCAPROIC ACID 5,000 MG in SODIUM CHLORIDE 0.9% 230 ML IV PRN (14:00)
[2020-06-06] MEDS ORDERED: PAPAVERINE HCL 180MG in SODIUM CHLORIDE 0.9% 24ML IV PRN (14:00)
[2020-06-06] MEDS ORDERED: NOREPINEPHRINE 8 MG in DEXT 5% WATER 242 ML IV PRN (14:00)
[2020-06-06] MEDS ORDERED: CEFAZOLIN 2,000 MG in DEXT 5% WATER 100 ML IV PRN (14:00)
[2020-06-06] MEDS ORDERED: EPINEPHRINE 5 MG in DEXT 5% WATER 245 ML IV PRN (14:00)
[2020-06-06] MEDS ORDERED: INSULIN REGULAR (DRIP) 100 UNITS in SODIUM CHLORIDE 0.9% 99 ML IV PRN (14:00)
[2020-06-06] MEDS ORDERED: DEL NIDO ELECTROLYTE-S(PH 7.4) 1,000 ML IV PRN ×2 (14:00)
[2020-06-06] MEDS ORDERED: DOBUTAMINE 250 MG in DEXT 5% WATER 230 ML IV PRN (14:00)
[2020-06-06] MEDS ORDERED: METOPROLOL TARTRATE 5MG/5ML VIAL IV ONE (14:01)
[2020-06-06] MEDS ORDERED: STERILE WATER FOR INJECTION 10ML VIAL ONE (14:37)
[2020-06-06] MEDS ORDERED: FUROSEMIDE 100MG/10ML VIAL ONE (16:24)
[2020-06-06] MEDS ORDERED: NEOSTIGMINE METHYLSULFATE 1MG/ML 10 ML VIAL ONE (17:12)
[2020-06-06] MEDS ORDERED: PROTAMINE SULFATE 10MG/ML VIAL 25ML IV ONE ×2 (17:32→21:00)
[2020-06-06] MEDS ORDERED: SODIUM BICARBONATE 8.4% 1 MEQ/ML 50ML SYR IV ONE (18:00)
[2020-06-06] MEDS ORDERED: HYDROMORPHONE HCL/PF 2MG/ML (OR) ONE (18:11)
[2020-06-06] MEDS ORDERED: ACETAMINOPHEN 325MG TABLET PO PRN (18:45)
[2020-06-06] MEDS ORDERED: DOPAMINE 400MG/250ML PREMIX 250 ML IV PRN (18:45)
[2020-06-06] MEDS ORDERED: ALBUMIN HUMAN 25GM/100ML (25%) IV PRN (18:45)
[2020-06-06 18:57] LABS: BG BASE EXCESS -1.1 mmol/L (-2.0-2.0); BG CARBOXYHEMOGLOBIN 0.3 % (0.5-1.5); BG DEOXYHEMOGLOBIN 1.6 % (0.0-5.0); BG FRACTION INSPIRED OXYGEN 100; BG HCO3 ACT 24.6 mmol/L (22.0-26.0); BG METHEMOGLOBIN 0.5 % (0.0-1.5); BG OXYGEN SATURATION 98.4 % (92.0-98.5); BG OXYHEMOGLOBIN 97.6 % (94.0-97.0); BG PCO2 44.8 mmHg (35.0-45.0); BG PH 7.357 (7.350-7.450); BG SAMPLE SITE ALINE; BG TOTAL HEMOGLOBIN 12.4 g/dL (12.0-18.0); BG VENT MODE MASK - NRB
[2020-06-06 19:01] LABS: BASOPHILS % 0.5 % (0.0-2.0); EOSINOPHILS % 2.6 % (0.0-5.0); HEMATOCRIT. 35.2 % (36.0-48.0); HEMOGLOBIN. 11.8 g/dL (12.0-16.0); LYMPHOCYTES % 23.1 % (20.0-50.0); MEAN CORPUSCULAR HEMOGLOBIN 28.3 pg (28.0-32.0); MEAN CORPUSCULAR VOLUME 84.8 fL (81.0-99.0); MEAN PLATELET VOLUME 7.1 fl (7.4-10.4); MONOCYTES % 4.5 % (2.0-8.0); NEUTROPHILS % 69.3 % (40.0-76.0); PLATELET 242 x1000/uL (130-400); RED BLOOD CELL COUNT 4.16 mill/uL (4.2-5.4); RED CELL DISTRIBUTION WIDTH 14.3 % (11.6-14.6)
[2020-06-06] MEDS ORDERED: DEXT 5%/0.45% NACL 500ML 1,000 ML IV SCH (19:15)
[2020-06-06] MEDS: CLOPIDOGREL 75MG TABLET PO SCH (19:15)
[2020-06-06] MEDS ORDERED: DEXTROSE 50% WATER 50ML SYRINGE IV PRN ×2 (19:15)
[2020-06-06] MEDS ORDERED: KCL 10MEQ/50ML PREMIX 200 ML IV PRN (19:15)
[2020-06-06] MEDS ORDERED: KCL 10MEQ/50ML PREMIX 100 ML IV PRN (19:15)
[2020-06-06] MEDS ORDERED: KCL 10MEQ/50ML PREMIX 150 ML IV PRN (19:15)
[2020-06-06] MEDS: MORPHINE SULFATE 2 MG/ML CPJ (NOT FOR IM USE) IV PRN (19:25)
[2020-06-06] MEDS ORDERED: DEXT 5%/0.45% NACL 1000ML 1,000 ML IV SCH (20:00)
[2020-06-06] MEDS: IPRATROPIUM/ALBUTEROL 0.5-3(2.5)MG/3ML NEB HHN SCH (20:25)
[2020-06-06] MEDS ORDERED: SODIUM CHLORIDE 0.9% 1,000 ML IV SCH ×2 (20:30)
[2020-06-06] MEDS ORDERED: INSULIN REGULAR (DRIP) 100 UNITS in SODIUM CHLORIDE 0.9% 99 ML IV SCH (20:30)
[2020-06-06] MEDS ORDERED: KETOROLAC 15MG/ML VIAL IV NR (21:30)
[2020-06-06] MEDS: ATORVASTATIN CALCIUM 40MG TABLET PO SCH (21:57)
[2020-06-06] MEDS ORDERED: PROTAMINE SULFATE 25 MG in SODIUM CHLORIDE 0.9% 50 ML IV SCH (22:00)
[2020-06-06] MEDS: OXYCODONE HCL/ACETAMINOPHEN 5/325MG TABLET PO PRN (22:24)
[2020-06-07] VITALS (44 sets, daily range): BP systolic 74–142; BP diastolic 41–74
[2020-06-07] MEDS: IPRATROPIUM/ALBUTEROL 0.5-3(2.5)MG/3ML NEB HHN SCH ×6 (00:15→21:14)
[2020-06-07 00:29] LABS: BASOPHILS % 0.3 % (0.0-2.0); EOSINOPHILS % 0.9 % (0.0-5.0); HEMATOCRIT. 35.7 % (36.0-48.0); HEMOGLOBIN. 11.9 g/dL (12.0-16.0); LYMPHOCYTES % 8.5 % (20.0-50.0); MEAN CORPUSCULAR HEMOGLOBIN 28.1 pg (28.0-32.0); MEAN CORPUSCULAR VOLUME 84.7 fL (81.0-99.0); MEAN PLATELET VOLUME 7.4 fl (7.4-10.4); MONOCYTES % 7.3 % (2.0-8.0); PLATELET 244 x1000/uL (130-400); RED BLOOD CELL COUNT 4.22 mill/uL (4.2-5.4); RED CELL DISTRIBUTION WIDTH 14.5 % (11.6-14.6)
[2020-06-07 00:45] LABS: PHOSPHORUS 5.4 mg/dL (2.5-4.9)
[2020-06-07] MEDS: BLOOD SUGAR DIAGNOSTIC STRIP TEST SCH ×11 (01:12→21:46)
[2020-06-07] MEDS: OXYCODONE HCL/ACETAMINOPHEN 5/325MG TABLET PO PRN ×5 (05:37→21:58)
[2020-06-07 05:44] LABS: BASOPHILS % 0.5 % (0.0-2.0); EOSINOPHILS % 0.4 % (0.0-5.0); HEMATOCRIT. 35.3 % (36.0-48.0); HEMOGLOBIN. 11.7 g/dL (12.0-16.0); LYMPHOCYTES % 12.2 % (20.0-50.0); MEAN CORPUSCULAR HEMOGLOBIN 28.4 pg (28.0-32.0); MEAN CORPUSCULAR VOLUME 85.5 fL (81.0-99.0); MEAN PLATELET VOLUME 7.4 fl (7.4-10.4); MONOCYTES % 7.9 % (2.0-8.0); PLATELET 258 x1000/uL (130-400); RED BLOOD CELL COUNT 4.13 mill/uL (4.2-5.4); RED CELL DISTRIBUTION WIDTH 14.6 % (11.6-14.6)
[2020-06-07] MEDS: MORPHINE SULFATE 2 MG/ML CPJ (NOT FOR IM USE) IV PRN ×2 (06:28→10:40)
[2020-06-07] MEDS: SODIUM CHLORIDE 0.9% INJ 3ML FLUSH IVF SCH ×3 (06:37→21:59)
[2020-06-07] MEDS: DOCUSATE SODIUM 100MG CAPSULE PO SCH ×2 (08:26→17:31)
[2020-06-07] MEDS: FAMOTIDINE 20MG/2ML VIAL IV SCH (08:27)
[2020-06-07] MEDS: OMEPRAZOLE 20MG CAPSULE EXTENDED RELEASE PO SCH (08:27)
[2020-06-07] MEDS: CLOPIDOGREL 75MG TABLET PO SCH (08:27)
[2020-06-07] MEDS: FERROUS SULFATE 325MG TABLET PO SCH (08:27)
[2020-06-07] MEDS: INSULIN LISPRO 100 UNITS/ML SUBCUT SCH ×4 (08:29→21:56)
[2020-06-07] MEDS: BACITRACIN 15GM TUBE TOP SCH ×2 (10:40→17:31)
[2020-06-07] MEDS ORDERED: KETOROLAC 15MG/ML VIAL IV NR (11:30)
[2020-06-07] MEDS: ONDANSETRON HCL 4MG/2ML INJ IV PRN ×2 (12:15→18:10)
[2020-06-07] MEDS ORDERED: KETOROLAC 15MG/ML VIAL IV ONE (12:30)
[2020-06-07] MEDS: CARVEDILOL 3.125 MG TABLET PO SCH (21:59)
[2020-06-07] MEDS: ATORVASTATIN CALCIUM 40MG TABLET PO SCH (21:59)
[2020-06-08] VITALS (13 sets, daily range): BP systolic 93–145; BP diastolic 55–78
[2020-06-08] MEDS: IPRATROPIUM/ALBUTEROL 0.5-3(2.5)MG/3ML NEB HHN SCH ×6 (00:12→21:42)
[2020-06-08] MEDS: BLOOD SUGAR DIAGNOSTIC STRIP TEST SCH ×4 (05:55→21:02)
[2020-06-08] MEDS: OMEPRAZOLE 20MG CAPSULE EXTENDED RELEASE PO SCH (05:57)
[2020-06-08] MEDS: SODIUM CHLORIDE 0.9% INJ 3ML FLUSH IVF SCH ×3 (05:57→21:02)
[2020-06-08] MEDS: OXYCODONE HCL/ACETAMINOPHEN 5/325MG TABLET PO PRN (06:18)
[2020-06-08 06:53] LABS: BASOPHILS % 0.3 % (0.0-2.0); EOSINOPHILS % 2.6 % (0.0-5.0); HEMATOCRIT. 35.1 % (36.0-48.0); HEMOGLOBIN. 11.1 g/dL (12.0-16.0); LYMPHOCYTES % 18.9 % (20.0-50.0); MEAN CORPUSCULAR VOLUME 88.4 fL (81.0-99.0); MEAN PLATELET VOLUME 7.9 fl (7.4-10.4); MONOCYTES % 8.9 % (2.0-8.0); NEUTROPHILS % 69.3 % (40.0-76.0); PLATELET 225 x1000/uL (130-400); RED BLOOD CELL COUNT 3.97 mill/uL (4.2-5.4)
[2020-06-08 07:19] LABS: PHOSPHORUS 5.7 mg/dL (2.5-4.9)
[2020-06-08] MEDS: INSULIN LISPRO 100 UNITS/ML SUBCUT SCH ×4 (07:20→21:00)
[2020-06-08] MEDS: FERROUS SULFATE 325MG TABLET PO SCH (08:00)
[2020-06-08] MEDS: FAMOTIDINE 20MG/2ML VIAL IV SCH (08:00)
[2020-06-08] MEDS: CARVEDILOL 3.125 MG TABLET PO SCH ×2 (08:00→21:02)
[2020-06-08] MEDS: ONDANSETRON HCL 4MG/2ML INJ IV PRN ×2 (08:00→14:19)
[2020-06-08] MEDS: CLOPIDOGREL 75MG TABLET PO SCH (08:00)
[2020-06-08] MEDS: DOCUSATE SODIUM 100MG CAPSULE PO SCH ×2 (08:00→17:43)
[2020-06-08] MEDS ORDERED: MORPHINE SULFATE 2 MG/ML CPJ (NOT FOR IM USE) IV NR (09:00)
[2020-06-08] MEDS ORDERED: KETOROLAC 15MG/ML VIAL IV NR (09:30)
[2020-06-08] MEDS ORDERED: MINERAL OIL 30ML BOTTLE PO NR (11:45)
[2020-06-08] MEDS ORDERED: FUROSEMIDE 40MG/4ML VIAL IVP NR (11:45)
[2020-06-08] MEDS: BACITRACIN 15GM TUBE TOP SCH ×2 (17:00→17:44)
[2020-06-08] MEDS: ATORVASTATIN CALCIUM 40MG TABLET PO SCH (21:02)
[2020-06-09] VITALS (12 sets, daily range): BP systolic 124–154; BP diastolic 59–79
[2020-06-09] MEDS: IPRATROPIUM/ALBUTEROL 0.5-3(2.5)MG/3ML NEB HHN SCH ×4 (01:03→20:30)
[2020-06-09] MEDS: ONDANSETRON HCL 4MG/2ML INJ IV PRN (01:06)
[2020-06-09] MEDS: BLOOD SUGAR DIAGNOSTIC STRIP TEST SCH ×4 (06:37→21:07)
[2020-06-09] MEDS: SODIUM CHLORIDE 0.9% INJ 3ML FLUSH IVF SCH ×3 (06:45→21:07)
[2020-06-09] MEDS: INSULIN LISPRO 100 UNITS/ML SUBCUT SCH ×4 (06:48→21:00)
[2020-06-09 08:18] LABS: BASOPHILS % 0.4 % (0.0-2.0); EOSINOPHILS % 4.7 % (0.0-5.0); HEMATOCRIT. 30.4 % (36.0-48.0); HEMOGLOBIN. 10.1 g/dL (12.0-16.0); LYMPHOCYTES % 20.8 % (20.0-50.0); MEAN CORPUSCULAR HEMOGLOBIN 28.9 pg (28.0-32.0); MEAN CORPUSCULAR VOLUME 86.7 fL (81.0-99.0); MEAN PLATELET VOLUME 7.6 fl (7.4-10.4); MONOCYTES % 8.9 % (2.0-8.0); NEUTROPHILS % 65.2 % (40.0-76.0); PLATELET 237 x1000/uL (130-400); RED BLOOD CELL COUNT 3.51 mill/uL (4.2-5.4); RED CELL DISTRIBUTION WIDTH 15.1 % (11.6-14.6)
[2020-06-09 08:31] LABS: PHOSPHORUS 5.9 mg/dL (2.5-4.9)
[2020-06-09] MEDS: CLOPIDOGREL 75MG TABLET PO SCH (09:30)
[2020-06-09] MEDS: FAMOTIDINE 20MG/2ML VIAL IV SCH (09:30)
[2020-06-09] MEDS: FERROUS SULFATE 325MG TABLET PO SCH (09:30)
[2020-06-09] MEDS: DOCUSATE SODIUM 100MG CAPSULE PO SCH ×2 (09:30→17:20)
[2020-06-09] MEDS: CARVEDILOL 3.125 MG TABLET PO SCH ×2 (09:31→21:06)
[2020-06-09] MEDS: BACITRACIN 15GM TUBE TOP SCH ×2 (09:37→17:20)
[2020-06-09] MEDS ORDERED: BISACODYL 10MG SUPP PR NR ×3 (10:45→21:00)
[2020-06-09] MEDS ORDERED: DOCUSATE SODIUM 100MG CAPSULE PO SCH (11:30)
[2020-06-09] MEDS ORDERED: MINERAL OIL 30ML BOTTLE PO NR (11:30)
[2020-06-09] MEDS ORDERED: FUROSEMIDE 100MG/10ML VIAL IVP NR (11:30)
[2020-06-09] MEDS ORDERED: HEPARIN SODIUM 1,000 UNIT/1ML VIAL IV NR (13:30)
[2020-06-09] MEDS: ATORVASTATIN CALCIUM 40MG TABLET PO SCH (21:07)
[2020-06-09] MEDS: OXYCODONE HCL/ACETAMINOPHEN 5/325MG TABLET PO PRN (21:21)
[2020-06-10] VITALS (12 sets, daily range): BP systolic 131–168; BP diastolic 58–76
[2020-06-10] MEDS: IPRATROPIUM/ALBUTEROL 0.5-3(2.5)MG/3ML NEB HHN SCH ×6 (00:20→20:23)
[2020-06-10] MEDS: OXYCODONE HCL/ACETAMINOPHEN 5/325MG TABLET PO PRN (05:02)
[2020-06-10] MEDS: SODIUM CHLORIDE 0.9% INJ 3ML FLUSH IVF SCH ×3 (05:03→21:43)
[2020-06-10] MEDS: BLOOD SUGAR DIAGNOSTIC STRIP TEST SCH ×4 (05:50→21:43)
[2020-06-10 06:33] LABS: BASOPHILS % 0.4 % (0.0-2.0); EOSINOPHILS % 5.7 % (0.0-5.0); HEMATOCRIT. 31.4 % (36.0-48.0); HEMOGLOBIN. 10.2 g/dL (12.0-16.0); LYMPHOCYTES % 28.2 % (20.0-50.0); MEAN CORPUSCULAR HEMOGLOBIN 28.1 pg (28.0-32.0); MEAN CORPUSCULAR VOLUME 86.3 fL (81.0-99.0); MEAN PLATELET VOLUME 7.5 fl (7.4-10.4); MONOCYTES % 10.3 % (2.0-8.0); NEUTROPHILS % 55.4 % (40.0-76.0); PLATELET 253 x1000/uL (130-400); RED BLOOD CELL COUNT 3.64 mill/uL (4.2-5.4); RED CELL DISTRIBUTION WIDTH 14.8 % (11.6-14.6)
[2020-06-10 06:40] LABS: PHOSPHORUS 5.8 mg/dL (2.5-4.9)
[2020-06-10] MEDS: INSULIN LISPRO 100 UNITS/ML SUBCUT SCH ×4 (06:48→21:00)
[2020-06-10] MEDS: FERROUS SULFATE 325MG TABLET PO SCH (08:58)
[2020-06-10] MEDS: CLOPIDOGREL 75MG TABLET PO SCH (08:59)
[2020-06-10] MEDS: DOCUSATE SODIUM 100MG CAPSULE PO SCH ×2 (08:59→17:37)
[2020-06-10] MEDS: CARVEDILOL 3.125 MG TABLET PO SCH ×2 (08:59→21:43)
[2020-06-10] MEDS: FAMOTIDINE 20MG/2ML VIAL IV SCH (09:00)
[2020-06-10] MEDS: BACITRACIN 15GM TUBE TOP SCH ×2 (09:00→17:39)
[2020-06-10] MEDS ORDERED: ACETAMINOPHEN WITH CODEINE 300/30MG TABLET PO PRN (17:30)
[2020-06-10] MEDS: ATORVASTATIN CALCIUM 40MG TABLET PO SCH (21:43)
[2020-06-11] VITALS (7 sets, daily range): BP systolic 118–151; BP diastolic 62–73
[2020-06-11] MEDS: IPRATROPIUM/ALBUTEROL 0.5-3(2.5)MG/3ML NEB HHN SCH ×4 (00:19→11:15)
[2020-06-11] MEDS: ONDANSETRON HCL 4MG/2ML INJ IV PRN (04:28)
[2020-06-11] MEDS: SODIUM CHLORIDE 0.9% INJ 3ML FLUSH IVF SCH (05:12)
[2020-06-11] MEDS: BLOOD SUGAR DIAGNOSTIC STRIP TEST SCH ×2 (05:50→11:51)
[2020-06-11] MEDS: INSULIN LISPRO 100 UNITS/ML SUBCUT SCH (07:20)
[2020-06-11] MEDS: FERROUS SULFATE 325MG TABLET PO SCH (08:09)
[2020-06-11] MEDS: CLOPIDOGREL 75MG TABLET PO SCH (08:09)
[2020-06-11] MEDS: FAMOTIDINE 20MG/2ML VIAL IV SCH (08:09)
[2020-06-11] MEDS: DOCUSATE SODIUM 100MG CAPSULE PO SCH (08:09)
[2020-06-11] MEDS: CARVEDILOL 3.125 MG TABLET PO SCH (08:10)
[2020-06-11] MEDS: BACITRACIN 15GM TUBE TOP SCH (09:53)
[2020-06-11] MEDS ORDERED: CLOP75TA4 MT (12:25)
[2020-06-11] MEDS ORDERED: COR3 MT (12:25)
== END 2020-06-11 12:07 | disposition home or self-care (01) | DRG 233 ==
LOC: ER 01:57 → 6WST 05:39 → EDBEDREQTM 06:03 → EDBEDREQSVC 06:03 → EDBEDREQ 06:03 → ENRESERV 12:46 → 3WST 06-05 11:13 → CVICU 06-06 18:31 → 3WST 06-07 20:41
PROVIDERS: ADMIT Internal Medicine; ATTEND Internal Medicine
PROC: 5A1D70Z Performance of Urinary Filtration, Intermittent, Less than 6 Hours Per Day (ICD-10-PCS; 2020-06-04)
PROC: 4A023N7 Measurement of Cardiac Sampling and Pressure, Left Heart, Percutaneous Approach (ICD-10-PCS; principal; 2020-06-05)
PROC: B2111ZZ Fluoroscopy of Multiple Coronary Arteries using Low Osmolar Contrast (ICD-10-PCS; 2020-06-05)
PROC: 5A1D70Z Performance of Urinary Filtration, Intermittent, Less than 6 Hours Per Day (ICD-10-PCS; 2020-06-05)
PROC: 30233N1 Transfusion of Nonautologous Red Blood Cells into Peripheral Vein, Percutaneous Approach (ICD-10-PCS; 2020-06-05)
PROC: B2131ZZ Fluoroscopy of Multiple Coronary Artery Bypass Grafts using Low Osmolar Contrast (ICD-10-PCS; 2020-06-06)
PROC: B2151ZZ Fluoroscopy of Left Heart using Low Osmolar Contrast (ICD-10-PCS; 2020-06-06)
PROC: 02100Z9 Bypass Coronary Artery, One Artery from Left Internal Mammary, Open Approach (ICD-10-PCS; 2020-06-06)
PROC: 021309W Bypass Coronary Artery, Four or More Arteries from Aorta with Autologous Venous Tissue, Open Approach (ICD-10-PCS; 2020-06-06)
PROC: 06BP4ZZ Excision of Right Saphenous Vein, Percutaneous Endoscopic Approach (ICD-10-PCS; 2020-06-06)
PROC: 5A1D70Z Performance of Urinary Filtration, Intermittent, Less than 6 Hours Per Day (ICD-10-PCS; 2020-06-06)
PROC: 5A1D70Z Performance of Urinary Filtration, Intermittent, Less than 6 Hours Per Day (ICD-10-PCS; 2020-06-07)
DX: I21.4 Non-ST elevation (NSTEMI) myocardial infarction (principal); N18.6 End stage renal disease; I50.23 Acute on chronic systolic (congestive) heart failure; J96.01 Acute respiratory failure with hypoxia; I13.2 Hypertensive heart and chronic kidney disease with heart failure and with stage 5 chronic kidney disease, or end stage renal disease; I42.9 Cardiomyopathy, unspecified; I31.3 Pericardial effusion (noninflammatory); I25.10 Atherosclerotic heart disease of native coronary artery without angina pectoris; Z20.828 Contact with and (suspected) exposure to other viral communicable diseases; D50.9 Iron deficiency anemia, unspecified; E04.9 Nontoxic goiter, unspecified; E11.22 Type 2 diabetes mellitus with diabetic chronic kidney disease; E11.51 Type 2 diabetes mellitus with diabetic peripheral angiopathy without gangrene; E78.5 Hyperlipidemia, unspecified; I44.7 Left bundle-branch block, unspecified; J44.9 Chronic obstructive pulmonary disease, unspecified; I34.0 Nonrheumatic mitral (valve) insufficiency; D72.829 Elevated white blood cell count, unspecified; E83.39 Other disorders of phosphorus metabolism; E83.41 Hypermagnesemia; E87.5 Hyperkalemia; I25.2 Old myocardial infarction; Z79.82 Long term (current) use of aspirin; Z79.02 Long term (current) use of antithrombotics/antiplatelets; Z89.411 Acquired absence of right great toe; Z99.2 Dependence on renal dialysis; Z79.84 Long term (current) use of oral hypoglycemic drugs; Z82.49 Family history of ischemic heart disease and other diseases of the circulatory system; Z83.3 Family history of diabetes mellitus; Z79.899 Other long term (current) drug therapy; Z89.432 Acquired absence of left foot; Z95.1 Presence of aortocoronary bypass graft
CPT/HCPCS: 36415; 36600; 71045; 80048; 80053; 80076; 81003; 82150; 82375; 82805; 82962; 83036; 83605; 83735; 83880; 84100; 84132; 84484; 85025; 86850; 86900; 86920; 87426; 93005; 93306; 93459; 93880; 93970; 97110; 97116; 97162; 97166; 97530; 97535; 99285; A4216; C1769; C1887; C1893; J0885; J1170; J1265; J1644; J1815; J1885; J1940; J2250; J2270; J2370; J2405; J2704; J2710; J2720; J2765; J3010; J3370; J3475; J3490; J7030; J7040; J7120; P9016; P9047; Q9967

== ENCOUNTER → 2020-12-19 | Outpatient (CLI) | payer MEDICARE, MEDICAID ==
[~2020-12-19] MED LIST changes: -BO1 TP; +BUME2TAB34 PO; +CA C1TAB71 PO; +CARV6.2548 MT; +CARV6.2548 PO; +CLOP-31 MT; +COR3 MT; +FOLI1TAB63 PO; +HYDR-4001 PO; -INSU100I28 SQ; -MEGE40TA5 PO; +MEGE40TA7 PO; +SEVE0.8P3 PO; +SIMV-43 PO; -SIMV20TA2 PO; -TOPUD PO
== END | disposition home or self-care (01) ==
LOC: NM 08:32
PROVIDERS: ATTEND Internal Medicine Endocrinology, Diabetes & Metabolism
DX: E05.90 Thyrotoxicosis, unspecified without thyrotoxic crisis or storm (principal)
CPT/HCPCS: 78014; A9516